=== PATIENT | female | born 1950 ===

== ENCOUNTER 2020-08-13 17:38 | Inpatient (IN) ==
[2020-08-13] MEDS ORDERED: SODIUM POLYSTYRENE SULFATE 15 GM/60 ML BOTTLE PO ONE ×2 (20:23→20:26)
[2020-08-13] MEDS ORDERED: PROMETHAZINE 25 MG/1 ML VIAL IM PRN (20:26)
[2020-08-13] MEDS ORDERED: SODIUM BICARBONATE 50 MEQ/50 ML VIAL IV ONE ×3 (20:26→20:28)
[2020-08-13] MEDS ORDERED: ONDANSETRON 4 MG/2 ML VIAL IV PRN (20:26)
[2020-08-13] MEDS ORDERED: ALBUTEROL 2.5 MG/3 ML NEB RESP TX PRN (20:26)
[2020-08-13 20:59] LABS: Basophils % 0.1 % (0.0-0.8); Hematocrit 32.1 VOL% (35.7-47.0); Hemoglobin 10.7 GM/DL (12.0-16.0); Immature Granulocytes % 1.1 %; Immature Granulocytes Absolute 0.18 #; Lymphocytes # 0.7 10*3/uL (1.4-4.0); Lymphocytes % 4.1 % (21.3-54.2); Mean Corpuscular HGB Conc 33.3 GM/DL (32-36); Mean Corpuscular Volume 89.2 FL (87-102); Monocytes % 7.1 % (1.7-12.7); Neutrophils % 87.6 % (38.7-73.9); Platelet Count 215 T/CUMM (130-400); Red Cell Distribution Width 14.1 % (9.3-17.3); White Blood Count 16.2 T/CUMM (4-12)
[2020-08-13 21:05] LABS: Blood Urea Nitrogen 232 MG/DL (7-18); CKMB % 5.1 %; Calcium 10.4 MG/DL (8.5-10.1); Estimated Glom Filtration Rate 2 ML/MIN; Glucose 104 MG/DL (74-106); Osmolality,Calculated 345.2 MOS/KG (273-304); Troponin I < 0.015 NG/ML (0.00-0.045)
[2020-08-13] MEDS ORDERED: ALBUMIN 5% 25 GM in PREMIX 1 EACH IV ONE ×2 (21:09→21:30)
[2020-08-13] MEDS ORDERED: SODIUM CHLORIDE 0.9% 1,000 ML IV ONE (21:12)
[2020-08-13] MEDS ORDERED: FUROSEMIDE 40 MG/4 ML VIAL IV ONE (21:30)
[2020-08-13] MEDS: PANTOPRAZOLE 40 MG VIAL IV SCH (22:05)
[2020-08-13] MEDS: ENOXAPARIN 30 MG/0.3 ML SYRINGE SUBCUT SCH (22:05)
[2020-08-13] MEDS: SODIUM CHLORIDE 0.9% 1,000 ML IV SCH (22:55)
[2020-08-13 23:02] LABS: Band Neutrophils 2 % (0-10); Lymphocytes 5 % (20-55); Metamyelocytes 1 %; Platelet Estimate Normal; Segmented Neutrophils 83 % (50-85); Total Cells Counted 100
[2020-08-13 23:03] LABS: Anisocytosis 1+; Microcytosis 1+
[2020-08-14] MEDS ORDERED: SODIUM BICARBONATE 50 MEQ/50 ML VIAL IV ONE (00:46)
[2020-08-14 05:11] LABS: Basophils % 0.1 % (0.0-0.8); Hematocrit 31.4 VOL% (35.7-47.0); Hemoglobin 10.5 GM/DL (12.0-16.0); Immature Granulocytes % 1.8 %; Lymphocytes # 0.6 10*3/uL (1.4-4.0); Lymphocytes % 3.8 % (21.3-54.2); Mean Corpuscular HGB Conc 33.4 GM/DL (32-36); Mean Platelet Volume 10.4 FL (9.6-12.0); Monocytes % 6.5 % (1.7-12.7); Neutrophils % 87.8 % (38.7-73.9); Platelet Count 215 T/CUMM (130-400); Red Blood Count 3.57 MC/CUMM (3.8-5.5); White Blood Count 16.4 T/CUMM (4-12)
[2020-08-14 05:31] LABS: Hypochromasia 1+; Lymphocytes 3 % (20-55); Segmented Neutrophils 94 % (50-85); Total Cells Counted 100
[2020-08-14 05:32] LABS: Microcytosis 1+; Ovalocytes Slight
[2020-08-14 06:01] LABS: Albumin 2.7 G/DL (3.4-5.0); Bilirubin,Total 0.5 MG/DL (0.2-1.0); Calcium 9.6 MG/DL (8.5-10.1); Osmolality,Calculated 348.5 MOS/KG (273-304); Total Protein 6.8 G/DL (6.4-8.3)
[2020-08-14] MEDS: SODIUM CHLORIDE 0.9% 1,000 ML IV SCH (08:10)
[2020-08-14] MEDS ORDERED: ONDANSETRON 4 MG TABLET PO PRN (09:41)
[2020-08-14] MEDS: SODIUM BICARB INJ 100 MEQ in STERILE WATER INJ 1,000 ML IV SCH (11:00)
[2020-08-14] MEDS: cloNIDine 0.1 MG TABLET PO SCH ×3 (11:38→23:27)
[2020-08-14 14:38] LABS: Osmolality,Calculated 354.3 MOS/KG (273-304)
[2020-08-14] MEDS: PANTOPRAZOLE 40 MG VIAL IV SCH (20:40)
[2020-08-14] MEDS: SIMVASTATIN 40 MG TABLET PO SCH (20:42)
[2020-08-14] MEDS: ENOXAPARIN 30 MG/0.3 ML SYRINGE SUBCUT SCH (20:42)
[2020-08-15] MEDS: SODIUM BICARB INJ 100 MEQ in STERILE WATER INJ 1,000 ML IV SCH ×2 (02:30→17:22)
[2020-08-15] MEDS: cloNIDine 0.1 MG TABLET PO SCH ×4 (04:59→22:56)
[2020-08-15 05:03] LABS: Calcium 8.7 MG/DL (8.5-10.1); Osmolality,Calculated 349.5 MOS/KG (273-304)
[2020-08-15 06:59] LABS: Hepatitis B Core IgM Quant 0.09 Index; Hepatitis B Surface Ag Quant < 0.10 Index; Hepatitis B Surface Ag Result Negative (Negative); Hepatitis C Virus Ab Quant 0.06 Index; Hepatitis C Virus Ab Result Negative (Negative)
[2020-08-15] MEDS: SIMVASTATIN 40 MG TABLET PO SCH (20:44)
[2020-08-15] MEDS: PANTOPRAZOLE 40 MG VIAL IV SCH (20:44)
[2020-08-15] MEDS: ENOXAPARIN 30 MG/0.3 ML SYRINGE SUBCUT SCH (20:44)
[2020-08-16 04:34] LABS: Calcium 8.3 MG/DL (8.5-10.1); Osmolality,Calculated 326.7 MOS/KG (273-304)
[2020-08-16] MEDS: cloNIDine 0.1 MG TABLET PO SCH (04:36)
[2020-08-16] MEDS: SODIUM BICARB INJ 100 MEQ in STERILE WATER INJ 1,000 ML IV SCH (06:14)
[2020-08-16] MEDS ORDERED: DIGOXIN 0.5 MG/2 ML AMP IV ONE ×2 (10:14→11:14)
[2020-08-16] MEDS ORDERED: HEPARIN 10,000 UNIT/10 ML VIAL IV SCH (10:15)
[2020-08-16] MEDS: PANTOPRAZOLE 40 MG TABLET PO SCH (10:34)
[2020-08-16] MEDS: ENOXAPARIN 100 MG/ML SYRINGE SUBCUT SCH (10:34)
[2020-08-16] MEDS: SIMVASTATIN 40 MG TABLET PO SCH (20:53)
[2020-08-17 04:02] LABS: Calcium 8.4 MG/DL (8.5-10.1); Osmolality,Calculated 307.7 MOS/KG (273-304)
[2020-08-17] MEDS: PANTOPRAZOLE 40 MG TABLET PO SCH (09:35)
[2020-08-17] MEDS: ENOXAPARIN 100 MG/ML SYRINGE SUBCUT SCH (09:35)
[2020-08-17] MEDS ORDERED: cefTRIAXone 1,000 MG in SYRINGE 1 EACH IV ONE (09:47)
[2020-08-17] MEDS: SIMVASTATIN 40 MG TABLET PO SCH (22:56)
[2020-08-18 03:58] LABS: Basophils # 0.1 10*3/uL (0.0-0.2); Basophils % 0.3 % (0.0-0.8); Eosinophils # 0.1 10*3/uL (0.0-0.87); Eosinophils % 0.4 % (0.00-10.9); Hematocrit 34.7 VOL% (35.7-47.0); Hemoglobin 11.2 GM/DL (12.0-16.0); Immature Granulocytes % 2.7 %; Immature Granulocytes Absolute 0.44 #; Lymphocytes # 1.2 10*3/uL (1.4-4.0); Lymphocytes % 7.6 % (21.3-54.2); Mean Corpuscular HGB Conc 32.3 GM/DL (32-36); Mean Corpuscular Volume 90.6 FL (87-102); Mean Platelet Volume 10.9 FL (9.6-12.0); Monocytes % 7.1 % (1.7-12.7); Neutrophils % 81.9 % (38.7-73.9); Platelet Count 246 T/CUMM (130-400); Red Blood Count 3.83 MC/CUMM (3.8-5.5); Red Cell Distribution Width 14.2 % (9.3-17.3); White Blood Count 16.1 T/CUMM (4-12)
[2020-08-18 04:22] LABS: Uric Acid 7.9 MG/DL (2.6-6.0)
[2020-08-18 05:29] LABS: Calcium 8.6 MG/DL (8.5-10.1); Osmolality,Calculated 317.7 MOS/KG (273-304)
[2020-08-18] MEDS ORDERED: cefTRIAXone 1,000 MG in SYRINGE 1 EACH IV ONE (09:00)
[2020-08-18] MEDS ORDERED: DILTIAZEM 50 MG/10 ML VIAL IV ONE (09:07)
[2020-08-18] MEDS ORDERED: dilTIAZem Drip 125 MG/125 ML PREMIX IV SCH (09:30)
[2020-08-18] MEDS: PANTOPRAZOLE 40 MG TABLET PO SCH (16:25)
[2020-08-18] MEDS: ENOXAPARIN 100 MG/ML SYRINGE SUBCUT SCH (16:25)
[2020-08-18] MEDS: SEVELAMER CARBONATE 800 MG TABLET PO SCH (16:55)
[2020-08-18] MEDS: SIMVASTATIN 40 MG TABLET PO SCH (20:48)
[2020-08-19 06:06] LABS: Basophils % 0.2 % (0.0-0.8); Eosinophils # 0.1 10*3/uL (0.0-0.87); Eosinophils % 0.3 % (0.00-10.9); Hematocrit 33.2 VOL% (35.7-47.0); Hemoglobin 10.8 GM/DL (12.0-16.0); Immature Granulocytes % 2.4 %; Immature Granulocytes Absolute 0.42 #; Lymphocytes # 0.9 10*3/uL (1.4-4.0); Lymphocytes % 5.1 % (21.3-54.2); Mean Corpuscular HGB Conc 32.5 GM/DL (32-36); Mean Platelet Volume 10.6 FL (9.6-12.0); Monocytes % 5.7 % (1.7-12.7); Neutrophils % 86.3 % (38.7-73.9); Platelet Count 265 T/CUMM (130-400); Red Blood Count 3.65 MC/CUMM (3.8-5.5); Red Cell Distribution Width 14.3 % (9.3-17.3); White Blood Count 17.4 T/CUMM (4-12)
[2020-08-19 06:23] LABS: Calcium 8.4 MG/DL (8.5-10.1); Osmolality,Calculated 324.5 MOS/KG (273-304)
[2020-08-19] MEDS: PANTOPRAZOLE 40 MG TABLET PO SCH (09:31)
[2020-08-19] MEDS: ENOXAPARIN 100 MG/ML SYRINGE SUBCUT SCH (09:31)
[2020-08-19] MEDS: cefTRIAXone 2,000 MG in SYRINGE 1 EACH IV SCH (09:41)
[2020-08-19] MEDS: DILTIAZEM CD 120 MG CAPSULE PO SCH ×2 (09:42→21:49)
[2020-08-19] MEDS: SEVELAMER CARBONATE 800 MG TABLET PO SCH ×3 (09:52→17:21)
[2020-08-19] MEDS ORDERED: cefTRIAXone 1,000 MG in SYRINGE 1 EACH IV ONE (15:59)
[2020-08-19] MEDS: ROSUVASTATIN 10 MG TABLET PO SCH (21:49)
[2020-08-20 06:36] LABS: Basophils % 0.2 % (0.0-0.8); Eosinophils % 0.3 % (0.00-10.9); Hematocrit 33.5 VOL% (35.7-47.0); Hemoglobin 10.8 GM/DL (12.0-16.0); Immature Granulocytes % 2.6 %; Immature Granulocytes Absolute 0.37 #; Mean Corpuscular HGB Conc 32.2 GM/DL (32-36); Mean Corpuscular Volume 91.5 FL (87-102); Mean Platelet Volume 10.9 FL (9.6-12.0); Monocytes % 4.5 % (1.7-12.7); Neutrophils % 85.4 % (38.7-73.9); Platelet Count 278 T/CUMM (130-400); Red Blood Count 3.66 MC/CUMM (3.8-5.5); Red Cell Distribution Width 14.2 % (9.3-17.3); White Blood Count 14.3 T/CUMM (4-12)
[2020-08-20 06:49] LABS: Calcium 8.3 MG/DL (8.5-10.1); Osmolality,Calculated 302.7 MOS/KG (273-304)
[2020-08-20 06:52] LABS: Risk Ratio 4.32
[2020-08-20 06:58] LABS: Free T4 (Free Thyroxine) 1.47 NG/DL (0.76-1.46)
[2020-08-20] MEDS: DILTIAZEM CD 120 MG CAPSULE PO SCH ×2 (08:51→21:50)
[2020-08-20] MEDS: PANTOPRAZOLE 40 MG TABLET PO SCH (08:52)
[2020-08-20] MEDS: SEVELAMER CARBONATE 800 MG TABLET PO SCH ×3 (09:16→19:41)
[2020-08-20] MEDS ORDERED: cefTRIAXone 1,000 MG in SYRINGE 1 EACH IV ONE (11:30)
[2020-08-20] MEDS ORDERED: propofoL 200 MG/20 ML VIAL IV ONE (14:02)
[2020-08-20] MEDS ORDERED: ONDANSETRON 4 MG/2 ML VIAL ONE (14:03)
[2020-08-20] MEDS ORDERED: LACTATED RINGERS 1,000 ML IV ONE (14:03)
[2020-08-20] MEDS ORDERED: SEVOFLURANE 1 UNIT/15 MINUTE INH ONE (14:03)
[2020-08-20] MEDS ORDERED: fentaNYL 100 MCG/2 ML VIAL ONE (14:03)
[2020-08-20] MEDS ORDERED: LIDOCAINE 2% 5 ML VIAL ONE (14:03)
[2020-08-20] MEDS: cefTRIAXone 2,000 MG in SYRINGE 1 EACH IV SCH (16:38)
[2020-08-20] MEDS: ENOXAPARIN 100 MG/ML SYRINGE SUBCUT SCH (16:53)
[2020-08-20] MEDS ORDERED: DILTIAZEM CD 180 MG CAPSULE PO SCH (21:00)
[2020-08-20] MEDS: METOPROLOL TARTRATE 25 MG TABLET PO SCH (21:50)
[2020-08-20] MEDS: ROSUVASTATIN 10 MG TABLET PO SCH (21:51)
[2020-08-21 05:31] LABS: Basophils % 0.1 % (0.0-0.8); Eosinophils % 0.1 % (0.00-10.9); Hematocrit 33.9 VOL% (35.7-47.0); Hemoglobin 10.7 GM/DL (12.0-16.0); Immature Granulocytes % 2.2 %; Immature Granulocytes Absolute 0.29 #; Lymphocytes # 0.9 10*3/uL (1.4-4.0); Lymphocytes % 6.4 % (21.3-54.2); Mean Corpuscular HGB Conc 31.6 GM/DL (32-36); Mean Corpuscular Volume 93.6 FL (87-102); Mean Platelet Volume 10.7 FL (9.6-12.0); Monocytes % 5.4 % (1.7-12.7); Neutrophils % 85.8 % (38.7-73.9); Platelet Count 284 T/CUMM (130-400); Red Blood Count 3.62 MC/CUMM (3.8-5.5); Red Cell Distribution Width 14.6 % (9.3-17.3); White Blood Count 13.4 T/CUMM (4-12)
[2020-08-21 05:46] LABS: Calcium 8.3 MG/DL (8.5-10.1); Osmolality,Calculated 308.5 MOS/KG (273-304)
[2020-08-21 05:56] LABS: Free T4 (Free Thyroxine) 1.55 NG/DL (0.76-1.46)
[2020-08-21] MEDS: propylthiouraciL 50 MG TABLET PO SCH ×3 (10:23→21:17)
[2020-08-21] MEDS: DILTIAZEM CD 120 MG CAPSULE PO SCH ×2 (10:23→21:18)
[2020-08-21] MEDS: PANTOPRAZOLE 40 MG TABLET PO SCH (10:24)
[2020-08-21] MEDS: ENOXAPARIN 100 MG/ML SYRINGE SUBCUT SCH (10:24)
[2020-08-21] MEDS: METOPROLOL TARTRATE 25 MG TABLET PO SCH ×2 (10:24→21:20)
[2020-08-21] MEDS: SEVELAMER CARBONATE 800 MG TABLET PO SCH ×3 (10:26→17:23)
[2020-08-21] MEDS ORDERED: cefTRIAXone 2,000 MG in SYRINGE 1 EACH IV ONE (12:00)
[2020-08-21] MEDS: cefTRIAXone 2,000 MG in SYRINGE 1 EACH IV SCH (12:11)
[2020-08-21] MEDS: APIXABAN 2.5 MG TABLET PO SCH (21:18)
[2020-08-21] MEDS: ROSUVASTATIN 10 MG TABLET PO SCH (21:18)
[2020-08-22 05:59] LABS: Basophils % 0.2 % (0.0-0.8); Eosinophils % 0.3 % (0.00-10.9); Hematocrit 31.4 VOL% (35.7-47.0); Immature Granulocytes % 1.5 %; Immature Granulocytes Absolute 0.23 #; Lymphocytes % 6.5 % (21.3-54.2); Mean Corpuscular HGB Conc 31.8 GM/DL (32-36); Mean Platelet Volume 10.7 FL (9.6-12.0); Neutrophils % 86.5 % (38.7-73.9); Platelet Count 299 T/CUMM (130-400); Red Blood Count 3.45 MC/CUMM (3.8-5.5); Red Cell Distribution Width 14.5 % (9.3-17.3); White Blood Count 15.3 T/CUMM (4-12)
[2020-08-22 06:19] LABS: Calcium 7.8 MG/DL (8.5-10.1); Osmolality,Calculated 312.8 MOS/KG (273-304)
[2020-08-22 06:22] LABS: Albumin 1.7 G/DL (3.4-5.0); Bilirubin,Total 0.6 MG/DL (0.2-1.0); Calcium 7.9 MG/DL (8.5-10.1); Osmolality,Calculated 315.7 MOS/KG (273-304); Total Protein 6.3 G/DL (6.4-8.3)
[2020-08-22] MEDS: SEVELAMER CARBONATE 800 MG TABLET PO SCH ×3 (09:21→17:59)
[2020-08-22] MEDS: APIXABAN 2.5 MG TABLET PO SCH ×2 (09:21→20:58)
[2020-08-22] MEDS: DILTIAZEM CD 120 MG CAPSULE PO SCH ×2 (09:21→20:58)
[2020-08-22] MEDS: propylthiouraciL 50 MG TABLET PO SCH ×3 (09:22→20:58)
[2020-08-22] MEDS: METOPROLOL TARTRATE 25 MG TABLET PO SCH ×2 (09:22→20:58)
[2020-08-22] MEDS: PANTOPRAZOLE 40 MG TABLET PO SCH (09:22)
[2020-08-22] MEDS: cefTRIAXone 2,000 MG in SYRINGE 1 EACH IV SCH (09:37)
[2020-08-22] MEDS: CEFEPIME 1,000 MG in SODIUM CHLORIDE 0.9% 100 ML IV SCH (15:49)
[2020-08-22] MEDS ORDERED: VANCOMYCIN INJ 2,500 MG in SODIUM CHLORIDE 0.9% 500 ML IV ONE (17:00)
[2020-08-22] MEDS: ROSUVASTATIN 10 MG TABLET PO SCH (20:58)
[2020-08-23 05:21] LABS: Basophils % 0.1 % (0.0-0.8); Eosinophils % 0.3 % (0.00-10.9); Hematocrit 30.9 VOL% (35.7-47.0); Hemoglobin 9.9 GM/DL (12.0-16.0); Immature Granulocytes % 1.8 %; Immature Granulocytes Absolute 0.28 #; Lymphocytes % 6.2 % (21.3-54.2); Monocytes % 5.2 % (1.7-12.7); Neutrophils % 86.4 % (38.7-73.9); Platelet Count 321 T/CUMM (130-400); Red Blood Count 3.36 MC/CUMM (3.8-5.5); Red Cell Distribution Width 14.6 % (9.3-17.3); White Blood Count 15.7 T/CUMM (4-12)
[2020-08-23 05:40] LABS: Calcium 7.6 MG/DL (8.5-10.1)
[2020-08-23] MEDS: METOPROLOL TARTRATE 25 MG TABLET PO SCH ×2 (08:33→20:48)
[2020-08-23] MEDS: SEVELAMER CARBONATE 800 MG TABLET PO SCH ×3 (08:33→17:25)
[2020-08-23] MEDS: DILTIAZEM CD 120 MG CAPSULE PO SCH ×2 (08:34→20:47)
[2020-08-23] MEDS: propylthiouraciL 50 MG TABLET PO SCH ×3 (08:34→20:48)
[2020-08-23] MEDS: PANTOPRAZOLE 40 MG TABLET PO SCH (08:34)
[2020-08-23] MEDS: APIXABAN 2.5 MG TABLET PO SCH ×2 (08:34→20:47)
[2020-08-23] MEDS: CEFEPIME 1,000 MG in SODIUM CHLORIDE 0.9% 100 ML IV SCH (16:05)
[2020-08-23] MEDS ORDERED: VANCOMYCIN INJ 750 MG in SODIUM CHLORIDE 0.9% 250 ML IV PRN (17:00)
[2020-08-23] MEDS: ZINC OXIDE PASTE 113 GM TUBE TOP SCH (20:46)
[2020-08-23] MEDS: ROSUVASTATIN 10 MG TABLET PO SCH (20:47)
[2020-08-24 05:52] LABS: Calcium 7.6 MG/DL (8.5-10.1); Osmolality,Calculated 295.2 MOS/KG (273-304)
[2020-08-24 09:11] LABS: Basophils % 0.4 % (0.0-0.8); Eosinophils % 0.3 % (0.00-10.9); Hematocrit 32.9 VOL% (35.7-47.0); Hemoglobin 10.1 GM/DL (12.0-16.0); Immature Granulocytes % 1.4 %; Immature Granulocytes Absolute 0.15 #; Lymphocytes # 0.8 10*3/uL (1.4-4.0); Lymphocytes % 6.8 % (21.3-54.2); Mean Corpuscular HGB Conc 30.7 GM/DL (32-36); Mean Corpuscular Volume 95.4 FL (87-102); Mean Platelet Volume 11.7 FL (9.6-12.0); Monocytes % 6.3 % (1.7-12.7); Neutrophils % 84.8 % (38.7-73.9); Platelet Count 305 T/CUMM (130-400); Red Blood Count 3.45 MC/CUMM (3.8-5.5); Red Cell Distribution Width 14.8 % (9.3-17.3)
[2020-08-24] MEDS: SEVELAMER CARBONATE 800 MG TABLET PO SCH ×2 (12:32→17:02)
[2020-08-24] MEDS: DILTIAZEM CD 120 MG CAPSULE PO SCH ×3 (13:12→21:42)
[2020-08-24] MEDS: METOPROLOL TARTRATE 25 MG TABLET PO SCH ×3 (13:12→21:44)
[2020-08-24] MEDS: PANTOPRAZOLE 40 MG TABLET PO SCH ×2 (13:12→14:54)
[2020-08-24] MEDS: propylthiouraciL 50 MG TABLET PO SCH ×3 (13:12→21:39)
[2020-08-24] MEDS: APIXABAN 2.5 MG TABLET PO SCH ×3 (13:12→21:43)
[2020-08-24] MEDS: CEFEPIME 1,000 MG in SODIUM CHLORIDE 0.9% 100 ML IV SCH (14:53)
[2020-08-24] MEDS ORDERED: VANCOMYCIN INJ 750 MG in SODIUM CHLORIDE 0.9% 250 ML IV ONE (17:00)
[2020-08-24] MEDS: ZINC OXIDE PASTE 113 GM TUBE TOP SCH ×2 (17:01→21:39)
[2020-08-24] MEDS: ROSUVASTATIN 10 MG TABLET PO SCH (21:39)
[2020-08-25 07:55] LABS: Basophils % 0.3 % (0.0-0.8); Eosinophils # 0.1 10*3/uL (0.0-0.87); Eosinophils % 0.6 % (0.00-10.9); Hematocrit 31.2 VOL% (35.7-47.0); Immature Granulocytes Absolute 0.23 #; Lymphocytes # 0.8 10*3/uL (1.4-4.0); Lymphocytes % 6.8 % (21.3-54.2); Mean Corpuscular HGB Conc 32.1 GM/DL (32-36); Mean Corpuscular Volume 91.5 FL (87-102); Monocytes % 7.6 % (1.7-12.7); Neutrophils % 82.7 % (38.7-73.9); Platelet Count 356 T/CUMM (130-400); Red Blood Count 3.41 MC/CUMM (3.8-5.5); Red Cell Distribution Width 14.8 % (9.3-17.3); White Blood Count 11.4 T/CUMM (4-12)
[2020-08-25 08:24] LABS: Albumin 1.8 G/DL (3.4-5.0); Bilirubin,Total 1.4 MG/DL (0.2-1.0); Osmolality,Calculated 285.2 MOS/KG (273-304); Total Protein 6.5 G/DL (6.4-8.3)
[2020-08-25] MEDS: METOPROLOL TARTRATE 25 MG TABLET PO SCH ×2 (09:41→20:58)
[2020-08-25] MEDS: PANTOPRAZOLE 40 MG TABLET PO SCH (09:41)
[2020-08-25] MEDS: APIXABAN 2.5 MG TABLET PO SCH ×2 (09:41→20:58)
[2020-08-25] MEDS: DILTIAZEM CD 120 MG CAPSULE PO SCH ×2 (09:41→20:58)
[2020-08-25] MEDS: SEVELAMER CARBONATE 800 MG TABLET PO SCH ×3 (09:41→16:53)
[2020-08-25] MEDS: propylthiouraciL 50 MG TABLET PO SCH ×3 (09:41→20:58)
[2020-08-25] MEDS: ZINC OXIDE PASTE 113 GM TUBE TOP SCH ×2 (12:36→21:01)
[2020-08-25] MEDS: CEFEPIME 1,000 MG in SODIUM CHLORIDE 0.9% 100 ML IV SCH (15:15)
[2020-08-25] MEDS: ROSUVASTATIN 10 MG TABLET PO SCH (20:58)
[2020-08-26] MEDS: SEVELAMER CARBONATE 800 MG TABLET PO SCH ×3 (09:29→17:01)
[2020-08-26] MEDS: ZINC OXIDE PASTE 113 GM TUBE TOP SCH ×2 (09:30→21:47)
[2020-08-26] MEDS ORDERED: HEPARIN 5,000 UNIT/1 ML VIAL IV PRN (11:24)
[2020-08-26] MEDS: PANTOPRAZOLE 40 MG TABLET PO SCH (11:45)
[2020-08-26] MEDS: propylthiouraciL 50 MG TABLET PO SCH ×3 (11:45→21:47)
[2020-08-26] MEDS: HEPARIN DRIP 25,000 UNITS/500 ML PREMIX IV SCH (12:48)
[2020-08-26] MEDS: METOPROLOL TARTRATE 25 MG TABLET PO SCH ×2 (12:56→21:47)
[2020-08-26] MEDS: APIXABAN 2.5 MG TABLET PO SCH (12:56)
[2020-08-26] MEDS: DILTIAZEM CD 120 MG CAPSULE PO SCH ×2 (12:56→21:47)
[2020-08-26] MEDS: CEFEPIME 1,000 MG in SODIUM CHLORIDE 0.9% 100 ML IV SCH (13:40)
[2020-08-26] MEDS: ROSUVASTATIN 10 MG TABLET PO SCH (21:47)
[2020-08-27 01:54] LABS: Calcium 7.7 MG/DL (8.5-10.1); Osmolality,Calculated 292.2 MOS/KG (273-304)
[2020-08-27] MEDS: SEVELAMER CARBONATE 800 MG TABLET PO SCH ×3 (09:09→17:30)
[2020-08-27] MEDS: HEPARIN DRIP 25,000 UNITS/500 ML PREMIX IV SCH ×2 (10:04→13:53)
[2020-08-27] MEDS: METOPROLOL TARTRATE 25 MG TABLET PO SCH ×2 (13:52→21:11)
[2020-08-27] MEDS: propylthiouraciL 50 MG TABLET PO SCH ×3 (13:52→21:09)
[2020-08-27] MEDS: DILTIAZEM CD 120 MG CAPSULE PO SCH ×2 (13:52→21:11)
[2020-08-27] MEDS: PANTOPRAZOLE 40 MG TABLET PO SCH (14:15)
[2020-08-27] MEDS: ZINC OXIDE PASTE 113 GM TUBE TOP SCH ×2 (14:15→21:11)
[2020-08-27] MEDS: CEFEPIME 1,000 MG in SODIUM CHLORIDE 0.9% 100 ML IV SCH (14:15)
[2020-08-27] MEDS: ROSUVASTATIN 10 MG TABLET PO SCH (21:09)
[2020-08-28 06:36] LABS: Basophils # 0.1 10*3/uL (0.0-0.2); Basophils % 0.5 % (0.0-0.8); Eosinophils # 0.1 10*3/uL (0.0-0.87); Eosinophils % 1.2 % (0.00-10.9); Hematocrit 28.8 VOL% (35.7-47.0); Hemoglobin 9.2 GM/DL (12.0-16.0); Immature Granulocytes % 4.3 %; Immature Granulocytes Absolute 0.42 #; Lymphocytes # 0.9 10*3/uL (1.4-4.0); Lymphocytes % 9.6 % (21.3-54.2); Mean Corpuscular HGB Conc 31.9 GM/DL (32-36); Mean Corpuscular Volume 92.3 FL (87-102); Mean Platelet Volume 11.3 FL (9.6-12.0); Neutrophils % 75.4 % (38.7-73.9); Platelet Count 350 T/CUMM (130-400); Red Blood Count 3.12 MC/CUMM (3.8-5.5); Red Cell Distribution Width 14.9 % (9.3-17.3); White Blood Count 9.8 T/CUMM (4-12)
[2020-08-28 06:55] LABS: Osmolality,Calculated 281.4 MOS/KG (273-304)
[2020-08-28] MEDS: propylthiouraciL 50 MG TABLET PO SCH ×3 (09:26→20:22)
[2020-08-28] MEDS: SEVELAMER CARBONATE 800 MG TABLET PO SCH ×3 (09:27→17:16)
[2020-08-28] MEDS: DILTIAZEM CD 120 MG CAPSULE PO SCH ×2 (09:27→20:22)
[2020-08-28] MEDS: METOPROLOL TARTRATE 25 MG TABLET PO SCH ×2 (09:27→20:22)
[2020-08-28] MEDS: PANTOPRAZOLE 40 MG TABLET PO SCH (09:27)
[2020-08-28] MEDS ORDERED: fentaNYL 100 MCG/2 ML VIAL ONE (12:50)
[2020-08-28] MEDS ORDERED: LIDOCAINE 2% 5 ML VIAL ONE (12:50)
[2020-08-28] MEDS ORDERED: SEVOFLURANE 1 UNIT/15 MINUTE INH ONE (12:50)
[2020-08-28] MEDS ORDERED: propofoL 200 MG/20 ML VIAL IV ONE (12:50)
[2020-08-28] MEDS ORDERED: GLYCOPYRROLATE 0.4 MG/2 ML VIAL ONE (12:50)
[2020-08-28] MEDS ORDERED: ETOMIDATE 40 MG/20 ML VIAL IV ONE (12:50)
[2020-08-28] MEDS ORDERED: ONDANSETRON 4 MG/2 ML VIAL ONE (12:50)
[2020-08-28] MEDS ORDERED: ROCURONIUM 100 MG/10 ML VIAL IV ONE (12:51)
[2020-08-28] MEDS ORDERED: NEOSTIGMINE 10 MG/10 ML VIAL ONE (12:51)
[2020-08-28] MEDS ORDERED: PHENYLEPHRINE 1 MG/10 ML SYRINGE IV ONE (12:51)
[2020-08-28] MEDS ORDERED: SODIUM CHLORIDE 0.9% 1,000 ML IV ONE (12:51)
[2020-08-28] MEDS: ZINC OXIDE PASTE 113 GM TUBE TOP SCH ×2 (13:11→20:23)
[2020-08-28] MEDS: ACYCLOVIR 200 MG CAPSULE PO SCH (15:18)
[2020-08-28] MEDS: CEFEPIME 1,000 MG in SODIUM CHLORIDE 0.9% 100 ML IV SCH (16:20)
[2020-08-28 19:05] LABS: INR 1.1; PT Patient Result 11.8 SECS (9.8-11.9); Partial Thromboplastin Time 56.4 SECS (23.9-33.8)
[2020-08-28] MEDS: ROSUVASTATIN 10 MG TABLET PO SCH (20:22)
[2020-08-28] MEDS: APIXABAN 2.5 MG TABLET PO SCH (21:22)
[2020-08-29 05:42] LABS: Calcium 7.8 MG/DL (8.5-10.1); Osmolality,Calculated 280.5 MOS/KG (273-304)
[2020-08-29 07:46] LABS: Basophils # 0.1 10*3/uL (0.0-0.2); Basophils % 0.6 % (0.0-0.8); Eosinophils # 0.1 10*3/uL (0.0-0.87); Eosinophils % 0.5 % (0.00-10.9); Hemoglobin 8.2 GM/DL (12.0-16.0); Immature Granulocytes % 5.1 %; Immature Granulocytes Absolute 0.53 #; Lymphocytes # 1.2 10*3/uL (1.4-4.0); Lymphocytes % 11.2 % (21.3-54.2); Mean Corpuscular HGB Conc 31.5 GM/DL (32-36); Mean Corpuscular Volume 93.5 FL (87-102); Mean Platelet Volume 10.8 FL (9.6-12.0); Monocytes % 7.9 % (1.7-12.7); Neutrophils % 74.7 % (38.7-73.9); Platelet Count 338 T/CUMM (130-400); Red Blood Count 2.78 MC/CUMM (3.8-5.5); Red Cell Distribution Width 14.8 % (9.3-17.3); White Blood Count 10.3 T/CUMM (4-12)
[2020-08-29] MEDS: propylthiouraciL 50 MG TABLET PO SCH ×3 (08:00→21:13)
[2020-08-29] MEDS: SEVELAMER CARBONATE 800 MG TABLET PO SCH ×3 (08:00→17:18)
[2020-08-29 08:13] LABS: Band Neutrophils 1 % (0-10); Hypochromasia 1+; Lymphocytes 12 % (20-55); Microcytosis 1+; Platelet Estimate Adequate; Segmented Neutrophils 82 % (50-85); Total Cells Counted 100
[2020-08-29] MEDS: DILTIAZEM CD 120 MG CAPSULE PO SCH ×2 (14:00→21:13)
[2020-08-29] MEDS: CEFEPIME 1,000 MG in SODIUM CHLORIDE 0.9% 100 ML IV SCH (14:00)
[2020-08-29] MEDS: ZINC OXIDE PASTE 113 GM TUBE TOP SCH ×2 (14:00→21:11)
[2020-08-29] MEDS: ACYCLOVIR 200 MG CAPSULE PO SCH (14:00)
[2020-08-29] MEDS: APIXABAN 2.5 MG TABLET PO SCH ×2 (14:00→21:11)
[2020-08-29] MEDS: METOPROLOL TARTRATE 25 MG TABLET PO SCH ×2 (14:00→21:12)
[2020-08-29] MEDS: PANTOPRAZOLE 40 MG TABLET PO SCH (14:00)
[2020-08-29] MEDS: ROSUVASTATIN 10 MG TABLET PO SCH (21:11)
[2020-08-30 05:53] LABS: Basophils % 0.4 % (0.0-0.8); Eosinophils # 0.1 10*3/uL (0.0-0.87); Eosinophils % 0.6 % (0.00-10.9); Hematocrit 25.4 VOL% (35.7-47.0); Immature Granulocytes % 5.7 %; Immature Granulocytes Absolute 0.62 #; Lymphocytes # 1.2 10*3/uL (1.4-4.0); Lymphocytes % 10.9 % (21.3-54.2); Mean Corpuscular HGB Conc 31.5 GM/DL (32-36); Mean Corpuscular Volume 93.7 FL (87-102); Mean Platelet Volume 11.2 FL (9.6-12.0); Monocytes % 8.9 % (1.7-12.7); Neutrophils % 73.5 % (38.7-73.9); Platelet Count 308 T/CUMM (130-400); Red Blood Count 2.71 MC/CUMM (3.8-5.5); Red Cell Distribution Width 15.1 % (9.3-17.3)
[2020-08-30 06:12] LABS: Calcium 7.7 MG/DL (8.5-10.1); Osmolality,Calculated 276.4 MOS/KG (273-304)
[2020-08-30 06:32] LABS: Band Neutrophils 1 % (0-10); Hypochromasia 1+; Lymphocytes 10 % (20-55); Metamyelocytes 1 %; Platelet Estimate Normal; Segmented Neutrophils 78 % (50-85); Total Cells Counted 100
[2020-08-30] MEDS: SEVELAMER CARBONATE 800 MG TABLET PO SCH ×3 (09:29→17:48)
[2020-08-30] MEDS: propylthiouraciL 50 MG TABLET PO SCH ×3 (09:31→21:15)
[2020-08-30] MEDS: METOPROLOL TARTRATE 25 MG TABLET PO SCH (09:32)
[2020-08-30] MEDS: DILTIAZEM CD 120 MG CAPSULE PO SCH (11:47)
[2020-08-30] MEDS ORDERED: SODIUM CHLORIDE 0.9% 300 ML IV ONE (13:59)
[2020-08-30] MEDS: ACYCLOVIR 200 MG CAPSULE PO SCH (14:18)
[2020-08-30] MEDS: ZINC OXIDE PASTE 113 GM TUBE TOP SCH ×2 (14:19→21:21)
[2020-08-30] MEDS: PANTOPRAZOLE 40 MG TABLET PO SCH (14:19)
[2020-08-30] MEDS: MULTIVITAMIN (BEROCCA) TABLET PO SCH (14:19)
[2020-08-30] MEDS: APIXABAN 2.5 MG TABLET PO SCH ×2 (15:03→21:15)
[2020-08-30] MEDS: CEFEPIME 1,000 MG in SODIUM CHLORIDE 0.9% 100 ML IV SCH (15:05)
[2020-08-30] MEDS: ROSUVASTATIN 10 MG TABLET PO SCH (21:15)
[2020-08-31 05:17] LABS: Basophils # 0.1 10*3/uL (0.0-0.2); Basophils % 0.6 % (0.0-0.8); Eosinophils # 0.1 10*3/uL (0.0-0.87); Eosinophils % 0.7 % (0.00-10.9); Hematocrit 24.8 VOL% (35.7-47.0); Hemoglobin 7.8 GM/DL (12.0-16.0); Immature Granulocytes % 8.2 %; Lymphocytes # 1.3 10*3/uL (1.4-4.0); Lymphocytes % 13.3 % (21.3-54.2); Mean Corpuscular HGB Conc 31.5 GM/DL (32-36); Mean Corpuscular Volume 93.9 FL (87-102); Mean Platelet Volume 11.2 FL (9.6-12.0); Monocytes % 9.2 % (1.7-12.7); NRBC # 0.02 10*3/uL; Platelet Count 340 T/CUMM (130-400); Red Blood Count 2.64 MC/CUMM (3.8-5.5); White Blood Count 9.7 T/CUMM (4-12)
[2020-08-31 05:46] LABS: Eosinophils 1 % (0-10); Lymphocytes 13 % (20-55); Myelocytes 1 %; Platelet Estimate Normal; Segmented Neutrophils 77 % (50-85); Total Cells Counted 100
[2020-08-31 05:47] LABS: Hypochromasia 1+
[2020-08-31 05:59] LABS: Calcium 8.1 MG/DL (8.5-10.1); Osmolality,Calculated 276.5 MOS/KG (273-304)
[2020-08-31] MEDS: SEVELAMER CARBONATE 800 MG TABLET PO SCH ×3 (11:14→17:24)
[2020-08-31] MEDS: propylthiouraciL 50 MG TABLET PO SCH ×3 (11:22→21:39)
[2020-08-31] MEDS: ZINC OXIDE PASTE 113 GM TUBE TOP SCH ×2 (13:58→21:39)
[2020-08-31] MEDS: APIXABAN 2.5 MG TABLET PO SCH ×2 (13:59→21:39)
[2020-08-31] MEDS: ACYCLOVIR 200 MG CAPSULE PO SCH (16:49)
[2020-08-31] MEDS: PANTOPRAZOLE 40 MG TABLET PO SCH (16:51)
[2020-08-31] MEDS: MULTIVITAMIN (BEROCCA) TABLET PO SCH (16:51)
[2020-08-31] MEDS: CEFEPIME 1,000 MG in SODIUM CHLORIDE 0.9% 100 ML IV SCH (16:54)
[2020-08-31] MEDS: ROSUVASTATIN 10 MG TABLET PO SCH (21:39)
[2020-09-01 05:46] LABS: Basophils # 0.1 10*3/uL (0.0-0.2); Basophils % 0.8 % (0.0-0.8); Eosinophils # 0.1 10*3/uL (0.0-0.87); Hematocrit 25.7 VOL% (35.7-47.0); Hemoglobin 8.1 GM/DL (12.0-16.0); Immature Granulocytes Absolute 0.83 #; Lymphocytes # 1.2 10*3/uL (1.4-4.0); Mean Corpuscular HGB Conc 31.5 GM/DL (32-36); Mean Corpuscular Volume 93.5 FL (87-102); Mean Platelet Volume 11.1 FL (9.6-12.0); Monocytes % 9.7 % (1.7-12.7); NRBC # 0.02 10*3/uL; Neutrophils % 64.5 % (38.7-73.9); Platelet Count 317 T/CUMM (130-400); Red Blood Count 2.75 MC/CUMM (3.8-5.5); Red Cell Distribution Width 14.9 % (9.3-17.3); White Blood Count 8.3 T/CUMM (4-12)
[2020-09-01 06:17] LABS: Band Neutrophils 2 % (0-10); Eosinophils 2 % (0-10); Lymphocytes 11 % (20-55); Metamyelocytes 2 %; Myelocytes 5 %; Nucleated Red Blood Cells 1 (0-5); Segmented Neutrophils 66 % (50-85); Total Cells Counted 100
[2020-09-01 06:18] LABS: Hypochromasia 1+; Microcytosis 1+
[2020-09-01 06:29] LABS: Osmolality,Calculated 275.2 MOS/KG (273-304)
[2020-09-01] MEDS: propylthiouraciL 50 MG TABLET PO SCH ×3 (09:23→21:35)
[2020-09-01] MEDS: MULTIVITAMIN (BEROCCA) TABLET PO SCH (09:23)
[2020-09-01] MEDS: ACYCLOVIR 200 MG CAPSULE PO SCH (09:25)
[2020-09-01] MEDS: PANTOPRAZOLE 40 MG TABLET PO SCH (09:25)
[2020-09-01] MEDS: APIXABAN 2.5 MG TABLET PO SCH ×2 (09:25→21:35)
[2020-09-01] MEDS: ZINC OXIDE PASTE 113 GM TUBE TOP SCH ×2 (09:28→21:35)
[2020-09-01] MEDS: SEVELAMER CARBONATE 800 MG TABLET PO SCH ×3 (09:30→18:32)
[2020-09-01] MEDS: CEFEPIME 1,000 MG in SODIUM CHLORIDE 0.9% 100 ML IV SCH (14:08)
[2020-09-01] MEDS: ROSUVASTATIN 10 MG TABLET PO SCH (21:35)
[2020-09-02 05:56] LABS: Basophils # 0.1 10*3/uL (0.0-0.2); Basophils % 0.9 % (0.0-0.8); Eosinophils # 0.1 10*3/uL (0.0-0.87); Eosinophils % 1.5 % (0.00-10.9); Hematocrit 25.7 VOL% (35.7-47.0); Hemoglobin 8.1 GM/DL (12.0-16.0); Immature Granulocytes % 12.4 %; Immature Granulocytes Absolute 1.13 #; Lymphocytes # 1.3 10*3/uL (1.4-4.0); Lymphocytes % 14.1 % (21.3-54.2); Mean Corpuscular HGB Conc 31.5 GM/DL (32-36); Mean Corpuscular Volume 94.1 FL (87-102); Mean Platelet Volume 10.8 FL (9.6-12.0); Monocytes % 9.6 % (1.7-12.7); NRBC # 0.03 10*3/uL; Neutrophils % 61.5 % (38.7-73.9); Platelet Count 329 T/CUMM (130-400); Red Blood Count 2.73 MC/CUMM (3.8-5.5); Red Cell Distribution Width 14.9 % (9.3-17.3); White Blood Count 9.1 T/CUMM (4-12)
[2020-09-02 06:12] LABS: Osmolality,Calculated 278.2 MOS/KG (273-304)
[2020-09-02 06:31] LABS: Band Neutrophils 2 % (0-10); Eosinophils 2 % (0-10); Hypochromasia 1+; Lymphocytes 15 % (20-55); Metamyelocytes 4 %; Microcytosis 1+; Myelocytes 2 %; Segmented Neutrophils 62 % (50-85); Total Cells Counted 100
[2020-09-02 06:32] LABS: Ovalocytes Slight
[2020-09-02 06:34] LABS: Atypical Lymphocytes Few
[2020-09-02] MEDS: MULTIVITAMIN (BEROCCA) TABLET PO SCH (09:26)
[2020-09-02] MEDS: propylthiouraciL 50 MG TABLET PO SCH ×3 (09:26→21:08)
[2020-09-02] MEDS: APIXABAN 2.5 MG TABLET PO SCH ×2 (09:26→21:08)
[2020-09-02] MEDS: PANTOPRAZOLE 40 MG TABLET PO SCH (09:26)
[2020-09-02] MEDS: ZINC OXIDE PASTE 113 GM TUBE TOP SCH ×2 (09:27→21:09)
[2020-09-02] MEDS: SEVELAMER CARBONATE 800 MG TABLET PO SCH ×3 (09:27→16:45)
[2020-09-02] MEDS: CEFEPIME 1,000 MG in SODIUM CHLORIDE 0.9% 100 ML IV SCH (13:45)
[2020-09-02] MEDS: ROSUVASTATIN 10 MG TABLET PO SCH (21:09)
[2020-09-03] MEDS: SEVELAMER CARBONATE 800 MG TABLET PO SCH ×3 (10:09→16:48)
[2020-09-03] MEDS: MULTIVITAMIN (BEROCCA) TABLET PO SCH (13:40)
[2020-09-03] MEDS: ZINC OXIDE PASTE 113 GM TUBE TOP SCH ×2 (13:41→20:44)
[2020-09-03] MEDS: PANTOPRAZOLE 40 MG TABLET PO SCH (13:41)
[2020-09-03] MEDS: APIXABAN 2.5 MG TABLET PO SCH ×2 (13:41→20:44)
[2020-09-03] MEDS: propylthiouraciL 50 MG TABLET PO SCH ×3 (13:41→20:44)
[2020-09-03] MEDS: CEFEPIME 1,000 MG in SODIUM CHLORIDE 0.9% 100 ML IV SCH (16:07)
[2020-09-03] MEDS: ROSUVASTATIN 10 MG TABLET PO SCH (20:44)
[2020-09-04] MEDS: APIXABAN 2.5 MG TABLET PO SCH ×2 (08:43→21:07)
[2020-09-04] MEDS: propylthiouraciL 50 MG TABLET PO SCH ×3 (08:43→21:17)
[2020-09-04] MEDS: SEVELAMER CARBONATE 800 MG TABLET PO SCH ×3 (08:43→18:36)
[2020-09-04] MEDS: MULTIVITAMIN (BEROCCA) TABLET PO SCH (08:43)
[2020-09-04] MEDS: PANTOPRAZOLE 40 MG TABLET PO SCH (08:43)
[2020-09-04] MEDS: ZINC OXIDE PASTE 113 GM TUBE TOP SCH ×2 (08:44→21:07)
[2020-09-04] MEDS: CEFEPIME 1,000 MG in SODIUM CHLORIDE 0.9% 100 ML IV SCH (14:49)
[2020-09-04] MEDS: MEGESTROL 40 MG TABLET PO SCH (21:07)
[2020-09-04] MEDS: ROSUVASTATIN 10 MG TABLET PO SCH (21:07)
[2020-09-05 06:27] LABS: Basophils # 0.1 10*3/uL (0.0-0.2); Basophils % 0.7 % (0.0-0.8); Eosinophils # 0.2 10*3/uL (0.0-0.87); Eosinophils % 1.6 % (0.00-10.9); Hematocrit 22.8 VOL% (35.7-47.0); Hemoglobin 7.2 GM/DL (12.0-16.0); Immature Granulocytes % 10.1 %; Immature Granulocytes Absolute 1.09 #; Lymphocytes # 1.5 10*3/uL (1.4-4.0); Lymphocytes % 14.1 % (21.3-54.2); Mean Corpuscular HGB Conc 31.6 GM/DL (32-36); Mean Corpuscular Volume 94.6 FL (87-102); Mean Platelet Volume 10.9 FL (9.6-12.0); Monocytes % 9.2 % (1.7-12.7); NRBC # 0.02 10*3/uL; Neutrophils % 64.3 % (38.7-73.9); Platelet Count 281 T/CUMM (130-400); Red Blood Count 2.41 MC/CUMM (3.8-5.5); Red Cell Distribution Width 15.2 % (9.3-17.3); White Blood Count 10.8 T/CUMM (4-12)
[2020-09-05 06:45] LABS: Albumin 1.7 G/DL (3.4-5.0); Bilirubin,Total 0.4 MG/DL (0.2-1.0); Calcium 8.1 MG/DL (8.5-10.1); Osmolality,Calculated 283.8 MOS/KG (273-304); Total Protein 5.8 G/DL (6.4-8.3)
[2020-09-05 06:57] LABS: Band Neutrophils 3 % (0-10); Hypochromasia 2+; Lymphocytes 12 % (20-55); Microcytosis 1+; Ovalocytes Slight; Platelet Estimate Adequate; Segmented Neutrophils 78 % (50-85); Total Cells Counted 100
[2020-09-05] MEDS: ZINC OXIDE PASTE 113 GM TUBE TOP SCH ×2 (07:45→22:12)
[2020-09-05] MEDS: MULTIVITAMIN (BEROCCA) TABLET PO SCH (08:15)
[2020-09-05] MEDS: MEGESTROL 40 MG TABLET PO SCH ×3 (08:15→22:12)
[2020-09-05] MEDS: propylthiouraciL 50 MG TABLET PO SCH ×3 (08:15→22:12)
[2020-09-05] MEDS: APIXABAN 2.5 MG TABLET PO SCH ×2 (08:15→22:12)
[2020-09-05] MEDS: PANTOPRAZOLE 40 MG TABLET PO SCH (08:15)
[2020-09-05] MEDS: SEVELAMER CARBONATE 800 MG TABLET PO SCH ×3 (08:20→17:40)
[2020-09-05] MEDS: CEFEPIME 1,000 MG in SODIUM CHLORIDE 0.9% 100 ML IV SCH (14:21)
[2020-09-05] MEDS: ROSUVASTATIN 10 MG TABLET PO SCH (22:12)
[2020-09-06] MEDS ORDERED: LIDOCAINE 2% TOP JELLY 20 ML VIAL INTRAURETH ONE (06:42)
[2020-09-06] MEDS ORDERED: LIDOCAINE 2% 5 ML VIAL ONE (07:23)
[2020-09-06] MEDS ORDERED: fentaNYL 100 MCG/2 ML VIAL ONE (07:24)
[2020-09-06] MEDS ORDERED: cefTRIAXone 1,000 MG VIAL ONE (07:35)
[2020-09-06] MEDS ORDERED: PHENYLEPHRINE 1 MG/10 ML SYRINGE IV ONE (07:42)
[2020-09-06] MEDS ORDERED: SODIUM CHLORIDE 0.9% 100 ML IV ONE (08:08)
[2020-09-06] MEDS ORDERED: propofoL 200 MG/20 ML VIAL IV ONE (08:22)
[2020-09-06] MEDS: SEVELAMER CARBONATE 800 MG TABLET PO SCH ×3 (09:07→17:06)
[2020-09-06] MEDS ORDERED: SODIUM CHLORIDE 0.9% 1,000 ML IV PRN (11:51)
[2020-09-06] MEDS: MULTIVITAMIN (BEROCCA) TABLET PO SCH (15:30)
[2020-09-06] MEDS: APIXABAN 2.5 MG TABLET PO SCH ×2 (15:30→20:44)
[2020-09-06] MEDS: propylthiouraciL 50 MG TABLET PO SCH ×3 (15:30→20:44)
[2020-09-06] MEDS: PANTOPRAZOLE 40 MG TABLET PO SCH (15:30)
[2020-09-06] MEDS: ZINC OXIDE PASTE 113 GM TUBE TOP SCH ×2 (15:31→20:46)
[2020-09-06] MEDS: MEGESTROL 40 MG TABLET PO SCH ×3 (15:31→20:44)
[2020-09-06] MEDS: ROSUVASTATIN 10 MG TABLET PO SCH (20:44)
[2020-09-07 08:36] LABS: Basophils # 0.1 10*3/uL (0.0-0.2); Basophils % 1.2 % (0.0-0.8); Eosinophils # 0.1 10*3/uL (0.0-0.87); Eosinophils % 1.5 % (0.00-10.9); Hematocrit 25.3 VOL% (35.7-47.0); Hemoglobin 8.1 GM/DL (12.0-16.0); Immature Granulocytes % 6.7 %; Immature Granulocytes Absolute 0.39 #; Lymphocytes % 17.7 % (21.3-54.2); Mean Corpuscular Volume 89.1 FL (87-102); Mean Platelet Volume 10.5 FL (9.6-12.0); Monocytes % 6.4 % (1.7-12.7); Neutrophils % 66.5 % (38.7-73.9); Platelet Count 203 T/CUMM (130-400); Red Blood Count 2.84 MC/CUMM (3.8-5.5); Red Cell Distribution Width 17.3 % (9.3-17.3); White Blood Count 5.8 T/CUMM (4-12)
[2020-09-07 08:50] LABS: Osmolality,Calculated 273.8 MOS/KG (273-304)
[2020-09-07 09:02] LABS: Anisocytosis Slight; Band Neutrophils 17 % (0-10); Lymphocytes 21 % (20-55); Metamyelocytes 2 %; Platelet Estimate Normal; Segmented Neutrophils 56 % (50-85); Total Cells Counted 100
[2020-09-07] MEDS: MULTIVITAMIN (BEROCCA) TABLET PO SCH (12:05)
[2020-09-07] MEDS: APIXABAN 2.5 MG TABLET PO SCH ×2 (12:05→22:42)
[2020-09-07] MEDS: PANTOPRAZOLE 40 MG TABLET PO SCH (12:05)
[2020-09-07] MEDS: MEGESTROL 40 MG TABLET PO SCH ×3 (12:05→22:42)
[2020-09-07] MEDS: propylthiouraciL 50 MG TABLET PO SCH ×3 (12:05→22:42)
[2020-09-07] MEDS: SEVELAMER CARBONATE 800 MG TABLET PO SCH ×4 (12:07→17:05)
[2020-09-07] MEDS: ZINC OXIDE PASTE 113 GM TUBE TOP SCH ×2 (14:11→22:40)
[2020-09-07] MEDS: ROSUVASTATIN 10 MG TABLET PO SCH (22:43)
[2020-09-08 05:30] LABS: Basophils # 0.1 10*3/uL (0.0-0.2); Basophils % 1.1 % (0.0-0.8); Eosinophils # 0.1 10*3/uL (0.0-0.87); Eosinophils % 1.5 % (0.00-10.9); Hemoglobin 9.1 GM/DL (12.0-16.0); Immature Granulocytes Absolute 0.32 #; Lymphocytes # 1.2 10*3/uL (1.4-4.0); Lymphocytes % 15.3 % (21.3-54.2); Mean Corpuscular HGB Conc 32.5 GM/DL (32-36); Mean Corpuscular Volume 90.6 FL (87-102); Mean Platelet Volume 11.2 FL (9.6-12.0); Monocytes % 10.6 % (1.7-12.7); Neutrophils % 67.5 % (38.7-73.9); Platelet Count 213 T/CUMM (130-400); Red Blood Count 3.09 MC/CUMM (3.8-5.5); Red Cell Distribution Width 17.1 % (9.3-17.3); White Blood Count 8.1 T/CUMM (4-12)
[2020-09-08 05:52] LABS: Calcium 8.4 MG/DL (8.5-10.1); Osmolality,Calculated 266.2 MOS/KG (273-304)
[2020-09-08] MEDS: propylthiouraciL 50 MG TABLET PO SCH ×3 (09:46→20:57)
[2020-09-08] MEDS: MULTIVITAMIN (BEROCCA) TABLET PO SCH (09:46)
[2020-09-08] MEDS: ZINC OXIDE PASTE 113 GM TUBE TOP SCH ×2 (09:47→20:58)
[2020-09-08] MEDS: MEGESTROL 40 MG TABLET PO SCH ×3 (09:47→20:57)
[2020-09-08] MEDS: PANTOPRAZOLE 40 MG TABLET PO SCH (09:47)
[2020-09-08] MEDS: SEVELAMER CARBONATE 800 MG TABLET PO SCH ×3 (09:47→16:43)
[2020-09-08] MEDS: APIXABAN 2.5 MG TABLET PO SCH ×2 (09:47→20:57)
[2020-09-08] MEDS: ROSUVASTATIN 10 MG TABLET PO SCH (20:57)
[2020-09-09 06:14] LABS: Basophils # 0.1 10*3/uL (0.0-0.2); Eosinophils # 0.2 10*3/uL (0.0-0.87); Eosinophils % 1.9 % (0.00-10.9); Hematocrit 27.7 VOL% (35.7-47.0); Hemoglobin 8.9 GM/DL (12.0-16.0); Immature Granulocytes % 4.2 %; Immature Granulocytes Absolute 0.33 #; Lymphocytes # 1.2 10*3/uL (1.4-4.0); Lymphocytes % 14.8 % (21.3-54.2); Mean Corpuscular HGB Conc 32.1 GM/DL (32-36); Mean Corpuscular Volume 90.5 FL (87-102); Mean Platelet Volume 10.6 FL (9.6-12.0); Monocytes % 10.6 % (1.7-12.7); Neutrophils % 67.5 % (38.7-73.9); Platelet Count 184 T/CUMM (130-400); Red Blood Count 3.06 MC/CUMM (3.8-5.5); Red Cell Distribution Width 17.2 % (9.3-17.3); White Blood Count 7.9 T/CUMM (4-12)
[2020-09-09 06:32] LABS: Calcium 8.3 MG/DL (8.5-10.1); Osmolality,Calculated 274.8 MOS/KG (273-304)
[2020-09-09] MEDS: propylthiouraciL 50 MG TABLET PO SCH ×3 (10:08→20:58)
[2020-09-09] MEDS: MULTIVITAMIN (BEROCCA) TABLET PO SCH (10:08)
[2020-09-09] MEDS: MEGESTROL 40 MG TABLET PO SCH ×3 (10:10→20:59)
[2020-09-09] MEDS: PANTOPRAZOLE 40 MG TABLET PO SCH (10:10)
[2020-09-09] MEDS: APIXABAN 2.5 MG TABLET PO SCH ×2 (10:10→20:59)
[2020-09-09] MEDS: SEVELAMER CARBONATE 800 MG TABLET PO SCH ×3 (10:13→16:01)
[2020-09-09] MEDS: ZINC OXIDE PASTE 113 GM TUBE TOP SCH ×2 (10:14→21:03)
[2020-09-09] MEDS: ROSUVASTATIN 10 MG TABLET PO SCH (20:58)
[2020-09-10 06:41] LABS: Basophils # 0.1 10*3/uL (0.0-0.2); Basophils % 1.2 % (0.0-0.8); Eosinophils # 0.1 10*3/uL (0.0-0.87); Eosinophils % 1.6 % (0.00-10.9); Hematocrit 28.1 VOL% (35.7-47.0); Immature Granulocytes % 3.8 %; Immature Granulocytes Absolute 0.31 #; Lymphocytes # 1.4 10*3/uL (1.4-4.0); Lymphocytes % 17.1 % (21.3-54.2); Mean Corpuscular Volume 90.4 FL (87-102); Mean Platelet Volume 10.6 FL (9.6-12.0); Monocytes % 10.1 % (1.7-12.7); Neutrophils % 66.2 % (38.7-73.9); Platelet Count 184 T/CUMM (130-400); Red Blood Count 3.11 MC/CUMM (3.8-5.5); Red Cell Distribution Width 16.6 % (9.3-17.3); White Blood Count 8.2 T/CUMM (4-12)
[2020-09-10 06:56] LABS: Calcium 8.2 MG/DL (8.5-10.1); Osmolality,Calculated 273.1 MOS/KG (273-304)
[2020-09-10] MEDS: SEVELAMER CARBONATE 800 MG TABLET PO SCH ×3 (10:28→16:18)
[2020-09-10] MEDS: MEGESTROL 40 MG TABLET PO SCH ×3 (12:03→21:21)
[2020-09-10] MEDS: propylthiouraciL 50 MG TABLET PO SCH ×3 (12:03→21:21)
[2020-09-10] MEDS: PANTOPRAZOLE 40 MG TABLET PO SCH (12:55)
[2020-09-10] MEDS: APIXABAN 2.5 MG TABLET PO SCH ×2 (12:56→21:21)
[2020-09-10] MEDS: MULTIVITAMIN (BEROCCA) TABLET PO SCH (12:56)
[2020-09-10] MEDS: ZINC OXIDE PASTE 113 GM TUBE TOP SCH ×2 (12:56→21:21)
[2020-09-10] MEDS: carvediloL 3.125 MG TABLET PO SCH (21:21)
[2020-09-10] MEDS: ROSUVASTATIN 10 MG TABLET PO SCH (21:21)
[2020-09-11 05:30] LABS: Basophils # 0.1 10*3/uL (0.0-0.2); Eosinophils # 0.1 10*3/uL (0.0-0.87); Hematocrit 28.7 VOL% (35.7-47.0); Hemoglobin 9.1 GM/DL (12.0-16.0); Immature Granulocytes % 2.6 %; Lymphocytes # 1.1 10*3/uL (1.4-4.0); Lymphocytes % 14.7 % (21.3-54.2); Mean Corpuscular HGB Conc 31.7 GM/DL (32-36); Mean Corpuscular Volume 90.8 FL (87-102); Mean Platelet Volume 11.3 FL (9.6-12.0); Monocytes % 10.5 % (1.7-12.7); Neutrophils % 70.2 % (38.7-73.9); Platelet Count 211 T/CUMM (130-400); Red Blood Count 3.16 MC/CUMM (3.8-5.5); Red Cell Distribution Width 16.6 % (9.3-17.3); White Blood Count 7.7 T/CUMM (4-12)
[2020-09-11 05:48] LABS: Calcium 8.5 MG/DL (8.5-10.1); Osmolality,Calculated 271.8 MOS/KG (273-304)
[2020-09-11] MEDS: carvediloL 3.125 MG TABLET PO SCH ×2 (09:07→20:38)
[2020-09-11] MEDS: propylthiouraciL 50 MG TABLET PO SCH ×3 (09:07→20:38)
[2020-09-11] MEDS: SEVELAMER CARBONATE 800 MG TABLET PO SCH ×4 (09:07→16:36)
[2020-09-11] MEDS: APIXABAN 2.5 MG TABLET PO SCH ×2 (09:08→20:38)
[2020-09-11] MEDS: MULTIVITAMIN (BEROCCA) TABLET PO SCH (09:08)
[2020-09-11] MEDS: ZINC OXIDE PASTE 113 GM TUBE TOP SCH ×2 (09:08→20:37)
[2020-09-11] MEDS: PANTOPRAZOLE 40 MG TABLET PO SCH (09:08)
[2020-09-11] MEDS: MEGESTROL 40 MG TABLET PO SCH ×3 (09:08→20:38)
[2020-09-11] MEDS: ROSUVASTATIN 10 MG TABLET PO SCH (20:38)
[2020-09-12 06:09] LABS: Basophils # 0.1 10*3/uL (0.0-0.2); Basophils % 1.2 % (0.0-0.8); Eosinophils # 0.1 10*3/uL (0.0-0.87); Eosinophils % 1.2 % (0.00-10.9); Hematocrit 29.2 VOL% (35.7-47.0); Hemoglobin 9.2 GM/DL (12.0-16.0); Immature Granulocytes % 2.4 %; Immature Granulocytes Absolute 0.19 #; Lymphocytes # 1.3 10*3/uL (1.4-4.0); Lymphocytes % 16.4 % (21.3-54.2); Mean Corpuscular HGB Conc 31.5 GM/DL (32-36); Mean Corpuscular Volume 91.5 FL (87-102); Mean Platelet Volume 11.4 FL (9.6-12.0); Monocytes % 9.9 % (1.7-12.7); Neutrophils % 68.9 % (38.7-73.9); Platelet Count 176 T/CUMM (130-400); Red Blood Count 3.19 MC/CUMM (3.8-5.5); Red Cell Distribution Width 16.6 % (9.3-17.3); White Blood Count 7.8 T/CUMM (4-12)
[2020-09-12 07:25] LABS: Calcium 8.5 MG/DL (8.5-10.1)
[2020-09-12 07:42] LABS: Hepatitis B Core IgM Quant < 0.05 Index; Hepatitis B Surface Ag Quant < 0.10 Index; Hepatitis B Surface Ag Result Negative (Negative); Hepatitis C Virus Ab Quant 0.05 Index; Hepatitis C Virus Ab Result Negative (Negative)
[2020-09-12] MEDS: propylthiouraciL 50 MG TABLET PO SCH ×3 (08:41→20:59)
[2020-09-12] MEDS: MEGESTROL 40 MG TABLET PO SCH ×3 (08:42→21:00)
[2020-09-12] MEDS: SEVELAMER CARBONATE 800 MG TABLET PO SCH ×3 (08:42→16:52)
[2020-09-12] MEDS: PANTOPRAZOLE 40 MG TABLET PO SCH (08:43)
[2020-09-12] MEDS: carvediloL 3.125 MG TABLET PO SCH ×2 (08:43→21:00)
[2020-09-12] MEDS: MULTIVITAMIN (BEROCCA) TABLET PO SCH (08:43)
[2020-09-12] MEDS: APIXABAN 2.5 MG TABLET PO SCH ×2 (08:43→21:00)
[2020-09-12] MEDS: ZINC OXIDE PASTE 113 GM TUBE TOP SCH ×2 (08:46→21:00)
[2020-09-12] MEDS: ROSUVASTATIN 10 MG TABLET PO SCH (21:00)
[2020-09-13 05:38] LABS: Basophils # 0.1 10*3/uL (0.0-0.2); Basophils % 1.2 % (0.0-0.8); Eosinophils # 0.1 10*3/uL (0.0-0.87); Eosinophils % 1.5 % (0.00-10.9); Hematocrit 27.6 VOL% (35.7-47.0); Hemoglobin 8.8 GM/DL (12.0-16.0); Immature Granulocytes % 2.1 %; Immature Granulocytes Absolute 0.15 #; Lymphocytes # 1.3 10*3/uL (1.4-4.0); Lymphocytes % 17.5 % (21.3-54.2); Mean Corpuscular HGB Conc 31.9 GM/DL (32-36); Mean Corpuscular Volume 91.4 FL (87-102); Mean Platelet Volume 11.7 FL (9.6-12.0); Monocytes % 10.3 % (1.7-12.7); Neutrophils % 67.4 % (38.7-73.9); Platelet Count 180 T/CUMM (130-400); Red Blood Count 3.02 MC/CUMM (3.8-5.5); Red Cell Distribution Width 16.7 % (9.3-17.3); White Blood Count 7.3 T/CUMM (4-12)
[2020-09-13 06:50] LABS: Calcium 8.4 MG/DL (8.5-10.1); Osmolality,Calculated 273.8 MOS/KG (273-304)
[2020-09-13] MEDS: propylthiouraciL 50 MG TABLET PO SCH ×3 (09:04→21:05)
[2020-09-13] MEDS: SEVELAMER CARBONATE 800 MG TABLET PO SCH ×3 (09:04→16:28)
[2020-09-13] MEDS: carvediloL 3.125 MG TABLET PO SCH ×2 (09:05→21:05)
[2020-09-13] MEDS: MULTIVITAMIN (BEROCCA) TABLET PO SCH (09:05)
[2020-09-13] MEDS: MEGESTROL 40 MG TABLET PO SCH ×3 (09:05→21:05)
[2020-09-13] MEDS: APIXABAN 2.5 MG TABLET PO SCH ×2 (09:05→21:05)
[2020-09-13] MEDS: ZINC OXIDE PASTE 113 GM TUBE TOP SCH ×2 (09:05→21:08)
[2020-09-13] MEDS: PANTOPRAZOLE 40 MG TABLET PO SCH (09:05)
[2020-09-13] MEDS: ROSUVASTATIN 10 MG TABLET PO SCH (21:05)
[2020-09-14 06:23] LABS: Basophils # 0.1 10*3/uL (0.0-0.2); Basophils % 0.8 % (0.0-0.8); Eosinophils # 0.2 10*3/uL (0.0-0.87); Eosinophils % 2.3 % (0.00-10.9); Hematocrit 28.7 VOL% (35.7-47.0); Hemoglobin 9.1 GM/DL (12.0-16.0); Immature Granulocytes % 2.8 %; Lymphocytes # 1.2 10*3/uL (1.4-4.0); Lymphocytes % 16.5 % (21.3-54.2); Mean Corpuscular HGB Conc 31.7 GM/DL (32-36); Mean Corpuscular Volume 90.5 FL (87-102); Mean Platelet Volume 11.6 FL (9.6-12.0); Monocytes % 10.3 % (1.7-12.7); Neutrophils % 67.3 % (38.7-73.9); Platelet Count 197 T/CUMM (130-400); Red Blood Count 3.17 MC/CUMM (3.8-5.5); Red Cell Distribution Width 16.7 % (9.3-17.3); White Blood Count 7.1 T/CUMM (4-12)
[2020-09-14 06:48] LABS: Calcium 8.2 MG/DL (8.5-10.1); Osmolality,Calculated 276.8 MOS/KG (273-304)
[2020-09-14] MEDS: SEVELAMER CARBONATE 800 MG TABLET PO SCH ×3 (13:20→16:58)
[2020-09-14] MEDS: propylthiouraciL 50 MG TABLET PO SCH ×3 (13:21→21:19)
[2020-09-14] MEDS: MULTIVITAMIN (BEROCCA) TABLET PO SCH (13:21)
[2020-09-14] MEDS: MEGESTROL 40 MG TABLET PO SCH ×3 (13:21→21:20)
[2020-09-14] MEDS: APIXABAN 2.5 MG TABLET PO SCH ×2 (13:22→21:20)
[2020-09-14] MEDS: ZINC OXIDE PASTE 113 GM TUBE TOP SCH ×2 (13:22→21:23)
[2020-09-14] MEDS: PANTOPRAZOLE 40 MG TABLET PO SCH (13:22)
[2020-09-14] MEDS: carvediloL 3.125 MG TABLET PO SCH ×3 (13:22→21:25)
[2020-09-14] MEDS: ROSUVASTATIN 10 MG TABLET PO SCH (21:19)
[2020-09-15] MEDS: SEVELAMER CARBONATE 800 MG TABLET PO SCH ×3 (08:52→17:19)
[2020-09-15] MEDS: carvediloL 3.125 MG TABLET PO SCH ×2 (08:53→21:09)
[2020-09-15] MEDS: propylthiouraciL 50 MG TABLET PO SCH ×3 (08:53→21:09)
[2020-09-15] MEDS: APIXABAN 2.5 MG TABLET PO SCH ×2 (08:53→21:09)
[2020-09-15] MEDS: PANTOPRAZOLE 40 MG TABLET PO SCH (08:53)
[2020-09-15] MEDS: MULTIVITAMIN (BEROCCA) TABLET PO SCH (08:53)
[2020-09-15] MEDS: ZINC OXIDE PASTE 113 GM TUBE TOP SCH ×2 (08:53→21:10)
[2020-09-15] MEDS: MEGESTROL 40 MG TABLET PO SCH ×3 (08:53→21:09)
[2020-09-15] MEDS: ROSUVASTATIN 10 MG TABLET PO SCH (21:09)
[2020-09-16] MEDS: propylthiouraciL 50 MG TABLET PO SCH ×3 (09:39→21:13)
[2020-09-16] MEDS: MULTIVITAMIN (BEROCCA) TABLET PO SCH (09:41)
[2020-09-16] MEDS: MEGESTROL 40 MG TABLET PO SCH ×3 (09:42→21:13)
[2020-09-16] MEDS: APIXABAN 2.5 MG TABLET PO SCH ×2 (09:42→21:13)
[2020-09-16] MEDS: carvediloL 3.125 MG TABLET PO SCH ×2 (09:42→21:13)
[2020-09-16] MEDS: PANTOPRAZOLE 40 MG TABLET PO SCH (09:42)
[2020-09-16] MEDS: SEVELAMER CARBONATE 800 MG TABLET PO SCH ×3 (09:43→16:43)
[2020-09-16] MEDS: ZINC OXIDE PASTE 113 GM TUBE TOP SCH ×2 (12:54→21:14)
[2020-09-16] MEDS: ROSUVASTATIN 10 MG TABLET PO SCH (21:13)
[2020-09-17 09:10] LABS: Basophils # 0.1 10*3/uL (0.0-0.2); Eosinophils # 0.1 10*3/uL (0.0-0.87); Eosinophils % 1.8 % (0.00-10.9); Hematocrit 24.9 VOL% (35.7-47.0); Immature Granulocytes % 3.4 %; Immature Granulocytes Absolute 0.17 #; Lymphocytes # 1.2 10*3/uL (1.4-4.0); Lymphocytes % 23.7 % (21.3-54.2); Mean Corpuscular HGB Conc 32.1 GM/DL (32-36); Mean Corpuscular Volume 89.2 FL (87-102); Mean Platelet Volume 11.1 FL (9.6-12.0); Neutrophils % 63.1 % (38.7-73.9); Platelet Count 190 T/CUMM (130-400); Red Blood Count 2.79 MC/CUMM (3.8-5.5); Red Cell Distribution Width 16.6 % (9.3-17.3)
[2020-09-17 09:27] LABS: Calcium 7.9 MG/DL (8.5-10.1); Osmolality,Calculated 272.8 MOS/KG (273-304)
[2020-09-17] MEDS: SEVELAMER CARBONATE 800 MG TABLET PO SCH ×2 (13:48→16:22)
[2020-09-17] MEDS: MEGESTROL 40 MG TABLET PO SCH ×3 (13:49→21:46)
[2020-09-17] MEDS: propylthiouraciL 50 MG TABLET PO SCH ×3 (13:49→21:45)
[2020-09-17] MEDS: ZINC OXIDE PASTE 113 GM TUBE TOP SCH ×2 (14:00→21:46)
[2020-09-17] MEDS: MULTIVITAMIN (BEROCCA) TABLET PO SCH (14:00)
[2020-09-17] MEDS: carvediloL 3.125 MG TABLET PO SCH ×2 (14:00→21:46)
[2020-09-17] MEDS: PANTOPRAZOLE 40 MG TABLET PO SCH (14:00)
[2020-09-17] MEDS: APIXABAN 2.5 MG TABLET PO SCH ×2 (14:00→21:46)
[2020-09-17] MEDS: ROSUVASTATIN 10 MG TABLET PO SCH (21:45)
[2020-09-18 08:05] LABS: Basophils # 0.1 10*3/uL (0.0-0.2); Eosinophils # 0.1 10*3/uL (0.0-0.87); Eosinophils % 1.1 % (0.00-10.9); Hematocrit 29.3 VOL% (35.7-47.0); Hemoglobin 9.4 GM/DL (12.0-16.0); Immature Granulocytes % 3.5 %; Immature Granulocytes Absolute 0.25 #; Lymphocytes # 1.4 10*3/uL (1.4-4.0); Lymphocytes % 19.3 % (21.3-54.2); Mean Corpuscular HGB Conc 32.1 GM/DL (32-36); Mean Corpuscular Volume 89.9 FL (87-102); Mean Platelet Volume 10.9 FL (9.6-12.0); Neutrophils % 65.1 % (38.7-73.9); Platelet Count 205 T/CUMM (130-400); Red Blood Count 3.26 MC/CUMM (3.8-5.5); Red Cell Distribution Width 16.7 % (9.3-17.3); White Blood Count 7.2 T/CUMM (4-12)
[2020-09-18] MEDS: SEVELAMER CARBONATE 800 MG TABLET PO SCH ×3 (08:18→16:14)
[2020-09-18] MEDS: MULTIVITAMIN (BEROCCA) TABLET PO SCH (08:18)
[2020-09-18] MEDS: carvediloL 3.125 MG TABLET PO SCH ×2 (08:19→21:59)
[2020-09-18] MEDS: PANTOPRAZOLE 40 MG TABLET PO SCH (08:19)
[2020-09-18] MEDS: MEGESTROL 40 MG TABLET PO SCH ×3 (08:19→21:59)
[2020-09-18] MEDS: APIXABAN 2.5 MG TABLET PO SCH ×2 (08:19→21:59)
[2020-09-18] MEDS: ZINC OXIDE PASTE 113 GM TUBE TOP SCH ×2 (08:19→21:59)
[2020-09-18] MEDS: propylthiouraciL 50 MG TABLET PO SCH ×3 (08:19→21:59)
[2020-09-18 08:35] LABS: Calcium 8.4 MG/DL (8.5-10.1); Osmolality,Calculated 274.7 MOS/KG (273-304)
[2020-09-18] MEDS ORDERED: SODIUM CHLORIDE 0.9% 500 ML IV ONE (13:30)
[2020-09-18] MEDS ORDERED: TUBERCULIN SKIN TEST 0.1 ML SYRINGE INTRADERM ONE (15:17)
[2020-09-18] MEDS: ROSUVASTATIN 10 MG TABLET PO SCH (21:59)
[2020-09-19 05:37] LABS: Basophils # 0.1 10*3/uL (0.0-0.2); Basophils % 0.7 % (0.0-0.8); Eosinophils # 0.1 10*3/uL (0.0-0.87); Eosinophils % 1.7 % (0.00-10.9); Hematocrit 25.8 VOL% (35.7-47.0); Hemoglobin 8.3 GM/DL (12.0-16.0); Immature Granulocytes % 3.6 %; Immature Granulocytes Absolute 0.26 #; Lymphocytes # 1.5 10*3/uL (1.4-4.0); Lymphocytes % 21.5 % (21.3-54.2); Mean Corpuscular HGB Conc 32.2 GM/DL (32-36); Mean Corpuscular Volume 89.3 FL (87-102); Mean Platelet Volume 11.6 FL (9.6-12.0); Monocytes % 11.4 % (1.7-12.7); Neutrophils % 61.1 % (38.7-73.9); Platelet Count 225 T/CUMM (130-400); Red Blood Count 2.89 MC/CUMM (3.8-5.5); Red Cell Distribution Width 16.9 % (9.3-17.3); White Blood Count 7.1 T/CUMM (4-12)
[2020-09-19 06:21] LABS: Calcium 8.3 MG/DL (8.5-10.1); Osmolality,Calculated 278.5 MOS/KG (273-304)
[2020-09-19] MEDS: carvediloL 3.125 MG TABLET PO SCH ×2 (08:09→21:55)
[2020-09-19] MEDS: MULTIVITAMIN (BEROCCA) TABLET PO SCH (08:11)
[2020-09-19] MEDS: APIXABAN 2.5 MG TABLET PO SCH ×2 (08:11→21:55)
[2020-09-19] MEDS: PANTOPRAZOLE 40 MG TABLET PO SCH (08:11)
[2020-09-19] MEDS: SEVELAMER CARBONATE 800 MG TABLET PO SCH ×3 (08:12→16:00)
[2020-09-19] MEDS: ZINC OXIDE PASTE 113 GM TUBE TOP SCH ×2 (08:12→21:55)
[2020-09-19] MEDS: MEGESTROL 40 MG TABLET PO SCH ×3 (08:12→21:55)
[2020-09-19] MEDS: propylthiouraciL 50 MG TABLET PO SCH ×3 (08:12→21:55)
[2020-09-19] MEDS: ROSUVASTATIN 10 MG TABLET PO SCH (21:55)
[2020-09-20 05:47] LABS: Basophils # 0.1 10*3/uL (0.0-0.2); Basophils % 0.9 % (0.0-0.8); Eosinophils # 0.1 10*3/uL (0.0-0.87); Eosinophils % 1.3 % (0.00-10.9); Hematocrit 28.9 VOL% (35.7-47.0); Hemoglobin 9.2 GM/DL (12.0-16.0); Immature Granulocytes % 4.5 %; Immature Granulocytes Absolute 0.34 #; Lymphocytes # 1.5 10*3/uL (1.4-4.0); Lymphocytes % 20.1 % (21.3-54.2); Mean Corpuscular HGB Conc 31.8 GM/DL (32-36); Mean Corpuscular Volume 90.3 FL (87-102); Mean Platelet Volume 11.6 FL (9.6-12.0); Monocytes % 9.5 % (1.7-12.7); Neutrophils % 63.7 % (38.7-73.9); Platelet Count 206 T/CUMM (130-400); Red Cell Distribution Width 16.9 % (9.3-17.3); White Blood Count 7.6 T/CUMM (4-12)
[2020-09-20 06:02] LABS: Calcium 8.4 MG/DL (8.5-10.1); Osmolality,Calculated 271.8 MOS/KG (273-304)
[2020-09-20] MEDS: APIXABAN 2.5 MG TABLET PO SCH ×2 (08:59→21:29)
[2020-09-20] MEDS: MEGESTROL 40 MG TABLET PO SCH ×3 (08:59→21:29)
[2020-09-20] MEDS: propylthiouraciL 50 MG TABLET PO SCH ×3 (08:59→21:28)
[2020-09-20] MEDS: MULTIVITAMIN (BEROCCA) TABLET PO SCH (08:59)
[2020-09-20] MEDS: SEVELAMER CARBONATE 800 MG TABLET PO SCH ×3 (08:59→16:38)
[2020-09-20] MEDS: PANTOPRAZOLE 40 MG TABLET PO SCH (08:59)
[2020-09-20] MEDS: carvediloL 3.125 MG TABLET PO SCH ×2 (09:00→21:29)
[2020-09-20] MEDS: ZINC OXIDE PASTE 113 GM TUBE TOP SCH ×2 (09:11→21:29)
[2020-09-20] MEDS: ROSUVASTATIN 10 MG TABLET PO SCH (21:29)
[2020-09-21] MEDS: SEVELAMER CARBONATE 800 MG TABLET PO SCH ×3 (09:11→17:53)
[2020-09-21] MEDS: propylthiouraciL 50 MG TABLET PO SCH ×3 (12:48→20:41)
[2020-09-21] MEDS: carvediloL 3.125 MG TABLET PO SCH ×2 (12:48→20:41)
[2020-09-21] MEDS: MULTIVITAMIN (BEROCCA) TABLET PO SCH (12:48)
[2020-09-21] MEDS: APIXABAN 2.5 MG TABLET PO SCH ×2 (12:49→20:41)
[2020-09-21] MEDS: PANTOPRAZOLE 40 MG TABLET PO SCH (12:49)
[2020-09-21] MEDS: MEGESTROL 40 MG TABLET PO SCH ×3 (12:50→20:41)
[2020-09-21] MEDS: ZINC OXIDE PASTE 113 GM TUBE TOP SCH ×2 (15:04→20:41)
[2020-09-21] MEDS: ROSUVASTATIN 10 MG TABLET PO SCH (20:41)
[2020-09-22] MEDS: MEGESTROL 40 MG TABLET PO SCH ×3 (08:56→20:39)
[2020-09-22] MEDS: MULTIVITAMIN (BEROCCA) TABLET PO SCH (08:56)
[2020-09-22] MEDS: SEVELAMER CARBONATE 800 MG TABLET PO SCH ×4 (08:56→16:39)
[2020-09-22] MEDS: propylthiouraciL 50 MG TABLET PO SCH ×3 (08:56→20:39)
[2020-09-22] MEDS: carvediloL 3.125 MG TABLET PO SCH ×2 (08:56→20:40)
[2020-09-22] MEDS: PANTOPRAZOLE 40 MG TABLET PO SCH (08:57)
[2020-09-22] MEDS: APIXABAN 2.5 MG TABLET PO SCH ×2 (08:57→20:39)
[2020-09-22] MEDS: ZINC OXIDE PASTE 113 GM TUBE TOP SCH ×2 (13:53→20:41)
[2020-09-22] MEDS: ROSUVASTATIN 10 MG TABLET PO SCH (20:40)
[2020-09-23] MEDS: propylthiouraciL 50 MG TABLET PO SCH ×3 (09:43→21:26)
[2020-09-23] MEDS: MULTIVITAMIN (BEROCCA) TABLET PO SCH (09:43)
[2020-09-23] MEDS: SEVELAMER CARBONATE 800 MG TABLET PO SCH ×3 (09:43→16:27)
[2020-09-23] MEDS: APIXABAN 2.5 MG TABLET PO SCH ×2 (09:44→21:26)
[2020-09-23] MEDS: ZINC OXIDE PASTE 113 GM TUBE TOP SCH ×2 (09:44→21:27)
[2020-09-23] MEDS: carvediloL 3.125 MG TABLET PO SCH ×2 (09:44→21:27)
[2020-09-23] MEDS: PANTOPRAZOLE 40 MG TABLET PO SCH (09:44)
[2020-09-23] MEDS: MEGESTROL 40 MG TABLET PO SCH (09:44)
[2020-09-23 13:21] LABS: Basophils % 0.4 % (0.0-0.8); Eosinophils % 0.4 % (0.00-10.9); Hematocrit 28.2 VOL% (35.7-47.0); Hemoglobin 9.4 GM/DL (12.0-16.0); Immature Granulocytes % 2.3 %; Immature Granulocytes Absolute 0.26 #; Lymphocytes # 1.5 10*3/uL (1.4-4.0); Lymphocytes % 13.4 % (21.3-54.2); Mean Corpuscular HGB Conc 33.3 GM/DL (32-36); Mean Corpuscular Volume 87.9 FL (87-102); Mean Platelet Volume 10.5 FL (9.6-12.0); Monocytes % 7.6 % (1.7-12.7); Neutrophils % 75.9 % (38.7-73.9); Platelet Count 223 T/CUMM (130-400); Red Blood Count 3.21 MC/CUMM (3.8-5.5); Red Cell Distribution Width 17.2 % (9.3-17.3); White Blood Count 11.3 T/CUMM (4-12)
[2020-09-23 13:48] LABS: Calcium 8.4 MG/DL (8.5-10.1); Osmolality,Calculated 273.1 MOS/KG (273-304)
[2020-09-23] MEDS: ROSUVASTATIN 10 MG TABLET PO SCH (21:26)
[2020-09-24 05:23] LABS: Basophils % 0.2 % (0.0-0.8); Eosinophils # 0.1 10*3/uL (0.0-0.87); Eosinophils % 0.6 % (0.00-10.9); Hematocrit 25.8 VOL% (35.7-47.0); Hemoglobin 8.5 GM/DL (12.0-16.0); Immature Granulocytes % 2.8 %; Lymphocytes # 1.3 10*3/uL (1.4-4.0); Lymphocytes % 12.2 % (21.3-54.2); Mean Corpuscular HGB Conc 32.9 GM/DL (32-36); Mean Corpuscular Volume 86.3 FL (87-102); Mean Platelet Volume 10.9 FL (9.6-12.0); Monocytes % 6.8 % (1.7-12.7); Neutrophils % 77.4 % (38.7-73.9); Platelet Count 231 T/CUMM (130-400); Red Blood Count 2.99 MC/CUMM (3.8-5.5); Red Cell Distribution Width 17.2 % (9.3-17.3); White Blood Count 10.8 T/CUMM (4-12)
[2020-09-24 05:57] LABS: Calcium 8.4 MG/DL (8.5-10.1); Osmolality,Calculated 271.4 MOS/KG (273-304)
[2020-09-24] MEDS: MULTIVITAMIN (BEROCCA) TABLET PO SCH ×2 (09:48→14:27)
[2020-09-24] MEDS: ZINC OXIDE PASTE 113 GM TUBE TOP SCH ×2 (09:48→21:11)
[2020-09-24] MEDS: APIXABAN 2.5 MG TABLET PO SCH ×3 (09:48→21:12)
[2020-09-24] MEDS: SEVELAMER CARBONATE 800 MG TABLET PO SCH ×3 (09:48→17:10)
[2020-09-24] MEDS: METOPROLOL TARTRATE 25 MG TABLET PO SCH ×2 (09:49→21:12)
[2020-09-24] MEDS: PANTOPRAZOLE 40 MG TABLET PO SCH ×2 (09:49→14:26)
[2020-09-24] MEDS: propylthiouraciL 50 MG TABLET PO SCH ×3 (09:49→21:12)
[2020-09-24] MEDS: ROSUVASTATIN 10 MG TABLET PO SCH (21:12)
[2020-09-25 05:45] LABS: Basophils # 0.1 10*3/uL (0.0-0.2); Basophils % 0.5 % (0.0-0.8); Eosinophils # 0.1 10*3/uL (0.0-0.87); Eosinophils % 0.9 % (0.00-10.9); Immature Granulocytes Absolute 0.28 #; Lymphocytes # 1.4 10*3/uL (1.4-4.0); Lymphocytes % 15.1 % (21.3-54.2); Mean Corpuscular HGB Conc 33.3 GM/DL (32-36); Mean Corpuscular Volume 87.1 FL (87-102); Mean Platelet Volume 11.4 FL (9.6-12.0); Monocytes % 7.2 % (1.7-12.7); NRBC # 0.02 10*3/uL; Neutrophils % 73.3 % (38.7-73.9); Platelet Count 246 T/CUMM (130-400); Red Cell Distribution Width 17.2 % (9.3-17.3); White Blood Count 9.3 T/CUMM (4-12)
[2020-09-25 06:40] LABS: Calcium 8.2 MG/DL (8.5-10.1); Osmolality,Calculated 269.2 MOS/KG (273-304)
[2020-09-25] MEDS: ZINC OXIDE PASTE 113 GM TUBE TOP SCH ×2 (09:00→20:46)
[2020-09-25] MEDS: PANTOPRAZOLE 40 MG TABLET PO SCH (09:38)
[2020-09-25] MEDS: METOPROLOL TARTRATE 25 MG TABLET PO SCH (09:38)
[2020-09-25] MEDS: propylthiouraciL 50 MG TABLET PO SCH ×3 (09:38→20:44)
[2020-09-25] MEDS: MULTIVITAMIN (BEROCCA) TABLET PO SCH (09:38)
[2020-09-25] MEDS: APIXABAN 2.5 MG TABLET PO SCH ×2 (09:38→20:44)
[2020-09-25] MEDS: SEVELAMER CARBONATE 800 MG TABLET PO SCH ×3 (09:38→17:43)
[2020-09-25] MEDS ORDERED: AMIODARONE INJ 150 MG in DEXTROSE 5% 100 ML IV ONE (09:41)
[2020-09-25] MEDS ORDERED: AMIODARONE INJ 450 MG in DEXTROSE 5% 241 ML IV SCH (10:00)
[2020-09-25] MEDS ORDERED: SIMETHICONE CHEW 80 MG TABLET PO PRN (11:41)
[2020-09-25] MEDS: BISOPROLOL 5 MG TABLET PO SCH (16:31)
[2020-09-25] MEDS: AMIODARONE INJ 450 MG in DEXTROSE 5% 241 ML IV SCH ×2 (17:17→20:45)
[2020-09-25] MEDS: ROSUVASTATIN 10 MG TABLET PO SCH (20:44)
[2020-09-26 05:22] LABS: Basophils % 0.4 % (0.0-0.8); Eosinophils # 0.1 10*3/uL (0.0-0.87); Eosinophils % 1.2 % (0.00-10.9); Hematocrit 27.3 VOL% (35.7-47.0); Hemoglobin 9.2 GM/DL (12.0-16.0); Immature Granulocytes % 4.7 %; Immature Granulocytes Absolute 0.53 #; Lymphocytes # 1.7 10*3/uL (1.4-4.0); Lymphocytes % 15.6 % (21.3-54.2); Mean Corpuscular HGB Conc 33.7 GM/DL (32-36); Mean Corpuscular Volume 86.7 FL (87-102); Mean Platelet Volume 10.4 FL (9.6-12.0); Monocytes % 6.6 % (1.7-12.7); NRBC # 0.02 10*3/uL; Neutrophils % 71.5 % (38.7-73.9); Platelet Count 275 T/CUMM (130-400); Red Blood Count 3.15 MC/CUMM (3.8-5.5); Red Cell Distribution Width 17.3 % (9.3-17.3); White Blood Count 11.2 T/CUMM (4-12)
[2020-09-26 05:47] LABS: Bilirubin,Direct 0.1 MG/DL (0.0-0.20); Bilirubin,Indirect 0.5 MG/DL (0.0-1.0); Bilirubin,Total 0.6 MG/DL (0.2-1.0); Total Protein 6.3 G/DL (6.4-8.3)
[2020-09-26 05:49] LABS: Calcium 8.3 MG/DL (8.5-10.1); Osmolality,Calculated 265.4 MOS/KG (273-304)
[2020-09-26 06:10] LABS: Eosinophils 1 % (0-10); Hypochromasia 1+; Lymphocytes 21 % (20-55); Metamyelocytes 2 %; Myelocytes 1 %; Segmented Neutrophils 71 % (50-85); Total Cells Counted 100
[2020-09-26 06:11] LABS: Anisocytosis 1+; Microcytosis 1+; Ovalocytes Slight; Platelet Estimate Normal; Target Cells Slight
[2020-09-26] MEDS: SEVELAMER CARBONATE 800 MG TABLET PO SCH ×2 (08:13→11:52)
[2020-09-26] MEDS: MULTIVITAMIN (BEROCCA) TABLET PO SCH (08:13)
[2020-09-26] MEDS: BISOPROLOL 5 MG TABLET PO SCH (08:14)
[2020-09-26] MEDS: APIXABAN 2.5 MG TABLET PO SCH (08:14)
[2020-09-26] MEDS: propylthiouraciL 50 MG TABLET PO SCH (08:14)
[2020-09-26] MEDS: PANTOPRAZOLE 40 MG TABLET PO SCH (08:14)
[2020-09-26] MEDS: AMIODARONE INJ 450 MG in DEXTROSE 5% 241 ML IV SCH (09:07)
[2020-09-26] MEDS: ZINC OXIDE PASTE 113 GM TUBE TOP SCH (11:53)
[2020-09-26 11:58] VITALS: BP 98/65
== END 2020-09-26 14:07 | disposition home or self-care (01) | DRG 659 ==
LOC: SUATTDRO 19:51 → N.ICU 19:51 → N.5E 08-17 11:06 → N.TELEN 08-18 10:29
PROVIDERS: ADMIT Internal Medicine; ATTEND Internal Medicine